=== PATIENT | male | born 1950 | race Asian ===

== ENCOUNTER 2021-12-24 09:33 | Day surgery (SDC) | payer OTHER ==
[~2021-12-24] VITALS: Ht 175.3 cm; Wt 82.6 kg
[~2021-12-24 09:33] MED LIST: CEFAZOLIN SOD 2 GM in D5W 50 ML IV ONE
[2021-12-24] MEDS ORDERED: BUPIVACAINE LIPOSOME/PF 266 MG/20 ML VIAL INFIL ONE (10:40)
[2021-12-24] MEDS ORDERED: SEVOFLURANE 15 MIN GAS INH ONE (13:50)
[2021-12-24] MEDS ORDERED: PROPOFOL 200MG/ 20ML VIAL (DIPRIVAN) IV ONE (13:50)
[2021-12-24] MEDS ORDERED: fentaNYL CITRATE/PF 100 MCG/2 ML AMP ONE (13:50)
[2021-12-24] MEDS ORDERED: CEFAZOLIN 2 GM IVPB PREMIX 50 ML IV ONE (13:50)
[2021-12-24] MEDS ORDERED: SUCCINYLCHOLINE CHLORIDE 20 MG/ML(QUELICIN) ONE (13:50)
[2021-12-24] MEDS ORDERED: ROCURONIUM BROMIDE 10 MG/ML (ZEMURON) ONE (13:50)
[2021-12-24] MEDS ORDERED: LR 1,000 ML IV.SOLN IV ONE (13:50)
[2021-12-24] MEDS ORDERED: BUPIVACAINE /PF 0.25% 30 ML VIAL INJ ONE (13:50)
[2021-12-24] MEDS ORDERED: SUGAMMADEX SODIUM 200 MG/2 ML VIAL IV ONE (13:50)
[2021-12-24] MEDS ORDERED: MEPERIDINE HCL/PF 50 MG/ML VIAL ONE (13:50)
[2021-12-24] MEDS ORDERED: ONDANSETRON HCL 4 MG/2 ML VIAL ONE (13:50)
[2021-12-24] MEDS ORDERED: NS IRRIG SOLN 1000 ML IR ONE (13:50)
[2021-12-24] MEDS ORDERED: HYDROmorphone 1 MG/ML INJ. CARTRIDGE IVP PRN (16:00)
[2021-12-24] MEDS ORDERED: KETOROLAC TROMETHAMINE 30 MG VIAL IVP PRN (16:00)
[2021-12-24] MEDS ORDERED: METOCLOPRAMIDE HCL 10 MG/2 ML VIAL IVP PRN (16:00)
[2021-12-24] MEDS ORDERED: ONDANSETRON HCL 4 MG/2 ML VIAL IVP PRN (16:00)
[2021-12-24] MEDS ORDERED: MEPERIDINE HCL/PF 25 MG/ML DISP.SYRIN IVP PRN (16:00)
[2021-12-24] MEDS ORDERED: LR 1,000 ML IV SCH (16:00)
[2021-12-24] MEDS ORDERED: KETOROLAC TROMETHAMINE 30 MG VIAL ONE (16:18)
[2021-12-24 16:35] VITALS: BP_SYST 160
== END 2021-12-24 19:00 | disposition home or self-care (01) ==
LOC: SDS 09:33 → SMU 09:34 → SDS 19:00
PROVIDERS: ATTEND Surgery
DX: K40.30 Unilateral inguinal hernia, with obstruction, without gangrene, not specified as recurrent (principal); N43.3 Hydrocele, unspecified; I10 Essential (primary) hypertension; Z20.822 Contact with and (suspected) exposure to COVID-19; Z79.899 Other long term (current) drug therapy
CPT/HCPCS: 36415; 88302; C1781; C9290; J0330; J0690; J1885; J2175; J2405; J2704; J3010; J3490; J7060; J7120